=== PATIENT | male | born 1965 | race Caucasian/White ===

== ENCOUNTER 2017-05-03 00:54 | Emergency (ER) | payer SELFPAY ==
--- NOTE | 2017-05-03 01:05 | EDM.PDOC ---
ED HPI GENERAL MEDICAL PROBLEM - General Chief Complaint: Abdominal Pain Stated Complaint: [facility] Time Seen by Provider: 05/03/17 01:04 - History of Present Illness INITIAL COMMENTS - FREE TEXT/NARRATIVE: 51-year-old male presents emergency room with abdominal pain. Patient is a somewhat unusual history the patient is in route from [place] to [place]. He states he has stage IV stomach cancer. He has worsening abdominal discomfort. The patient was riding the bus and can't take sitting anymore so he got off the bus here. His diagnosis was made early this year he becomes vague with questioned about where. Asked about his last medical [place] city. He does not have any paperwork pertaining to that medical encounter. 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 He has a bandage over his right lower abdomen where his ascites was last drained. Patient states she's been walking from [place] someone in [facility] bought him a bus ticket back to [place]. Sitting on the bus is very uncomfortable for him. He is not having any recent nausea vomiting or diarrhea. No black or tarry stools he has vomited blood in the past. Abdomen Pain Score (Numeric/FACES): 8 - Related Data Allergies Allergy/AdvReac Type Severity Reaction Status Date / Time No Known Allergies Allergy Verified 05/03/17 01:03 Home Meds: Home Meds . [No Known Home Meds] 05/03/17 [History] ED ROS GENERAL - Review of Systems Review Of Systems: See Below Constitutional: Reports: No Symptoms HEENT: Reports: No Symptoms Respiratory: Reports: No Symptoms Cardiovascular: Reports: No Symptoms GI/Abdominal: Reports: Abdominal Pain. Denies: Constipation, Diarrhea, Nausea, Vomiting : Reports: No Symptoms Musculoskeletal: Reports: No Symptoms Skin: Reports: No Symptoms Neurological: Reports: No Symptoms Psychiatric: Denies: Homicidal Ideation, Mood Lability, Suicidal Ideation Hematologic/Lymphatic: Reports: No Symptoms Immunologic: Reports: No Symptoms ED EXAM, GI/ABD - Physical Exam Exam: See Below Exam Limited By: No Limitations General Appearance: Alert, No Apparent Distress Head: Atraumatic, Normocephalic Neck: Normal Inspection, Supple, Non-Tender, Full Range of Motion Respiratory/Chest: No Respiratory Distress, Lungs Clear, Normal Breath Sounds Cardiovascular: Regular Rate, Rhythm, No Edema GI/Abdominal Exam: Normal Bowel Sounds, Soft, Non-Tender, Other (Patient had a large bandage over his right lower quadrant he says this is basically keep from scratching the area this is where his last paracentesis was. I removed the bandage really couldn't find a clear definitive site and didn't see any sign of irritation.) Course - Vital Signs Last Recorded V/S: Last Vital Signs Temp 36.3 C 05/03/17 01:03 Pulse 97 05/03/17 01:03 Resp 16 05/03/17 01:03 BP 118/87 05/03/17 01:03 Pulse Ox 100 05/03/17 01:03 - Orders/Labs/Meds Orders: Active Orders 24 hr Category Date Time Status Abdomen Pelvis w Cont [CT] Stat Exams 05/03/17 01:21 Taken Sodium Chloride 0.9% [Normal Saline] 1,000 ml Med 05/03/17 01:30 Active IV ASDIRECTED Medication Orders Sodium Chloride (Normal Saline) 1,000 mls @ 125 mls/hr IV ASDIRECTED ENZO Last Admin: 05/03/17 01:37 Dose: 125 mls/hr Labs: Laboratory Tests 05/03/17 05/03/17 05/03/17 Range/Units 01:00 01:00 01:00 WBC 3.12 L (4.23-9.07) K/mm3 RBC 3.89 L (4.63-6.08) M/mm3 Hgb 9.7 L (13.7-17.5) gm/L Hct 31.5 L (40.1-51.0) % MCV 81.0 (79.0-92.2) fl MCH 24.9 L (25.7-32.2) pg MCHC 30.8 L (32.2-35.5) g/dl RDW Std Deviation 54.2 H (35.1-43.9) fL Plt Count 79 L (163-337) K/mm3 MPV 10.6 (9.4-12.3) fl Neutrophils % (Manual) 57 (40-60) % Band Neutrophils % 0 (0-10) % Lymphocytes % (Manual) 20 (20-40) % Atypical Lymphs % 0 % Monocytes % (Manual) 13 H (2-10) % Eosinophils % (Manual) 7 (0.8-7.0) % Basophils % (Manual) 2 H (0.2-1.2) Myelocytes % 1 Platelet Estimate Decreased Plt Morphology Comment Normal Polychromasia 1+ slight Hypochromasia 1+ slight Poikilocytosis 1+ slight Anisocytosis 2+ moderate Microcytosis 1+ slight Macrocytosis 1+ slight Ovalocytes 1+ slight RBC Morph Comment Abnormal Sodium 143 (136-145) mEq/L Potassium 3.3 L (3.5-5.1) mEq/L Chloride 113 H (98-107) mEq/L Carbon Dioxide 27 (21-32) mEq/L Anion Gap 6.3 (5-15) BUN 10 (7-18) mg/dL Creatinine 0.8 (0.7-1.3) mg/dL Est Cr Clr Drug Dosing 122.07 mL/min Estimated GFR (MDRD) > 60 (>60) mL/min BUN/Creatinine Ratio 12.5 L (14-18) Glucose 84 (74-106) mg/dL Calcium 8.4 L (8.5-10.1) mg/dL Total Bilirubin 1.4 H (0.2-1.0) mg/dL AST 56 H (15-37) U/L ALT 28 (16-63) U/L Alkaline Phosphatase 244 H (46-116) U/L Total Protein 7.0 (6.4-8.2) g/dl Albumin 2.1 L (3.4-5.0) g/dl Globulin 4.9 gm/dL Albumin/Globulin Ratio 0.4 L (1-2) Lipase 271 (73-393) U/L Urine Color (Yellow) Urine Appearance (Clear) Urine pH (5.0-8.0) Ur Specific [place] (1.005-1.030) Urine Protein (Negative) Urine Glucose (UA) (Negative) Urine Ketones (Negative) Urine Occult Blood (Negative) Urine Nitrite (Negative) Urine Bilirubin (Negative) Urine Urobilinogen (0.2-1.0) Ur Leukocyte Esterase (Negative) Urine RBC (0-5) /hpf Urine WBC (0-5) /hpf Ur Epithelial Cells (0-5) /hpf Calcium Oxalate Crystal (NONE) Amorphous Sediment (NOT SEEN) /hpf Urine Bacteria (FEW) /hpf Urine Mucus (FEW) /hpf Urine Opiates Screen (NEGATIVE) Ur Buprenorphine Scrn (NEGATIVE) Ur Oxycodone Screen (NEGATIVE) Urine Methadone Screen (NEGATIVE) Ur Propoxyphene Screen (NEGATIVE) Ur Barbiturates Screen (NEGATIVE) Ur Tricyclics Screen (NEGATIVE) Ur Phencyclidine Scrn (NEGATIVE) Ur Amphetamine Screen (NEGATIVE) U Methamphetamines Scrn (NEGATIVE) U Benzodiazepines Scrn (NEGATIVE) U Cocaine Metab Screen (NEGATIVE) U Marijuana (THC) Screen (NEGATIVE) Ethyl Alcohol 0.00 (0.00) gm% 05/03/17 05/03/17 Range/Units 01:29 01:29 WBC (4.23-9.07) K/mm3 RBC (4.63-6.08) M/mm3 Hgb (13.7-17.5) gm/L Hct (40.1-51.0) % MCV (79.0-92.2) fl MCH (25.7-32.2) pg MCHC (32.2-35.5) g/dl RDW Std Deviation (35.1-43.9) fL Plt Count (163-337) K/mm3 MPV (9.4-12.3) fl Neutrophils % (Manual) (40-60) % Band Neutrophils % (0-10) % Lymphocytes % (Manual) (20-40) % Atypical Lymphs % % Monocytes % (Manual) (2-10) % Eosinophils % (Manual) (0.8-7.0) % Basophils % (Manual) (0.2-1.2) Myelocytes % Platelet Estimate Plt Morphology Comment Polychromasia Hypochromasia Poikilocytosis Anisocytosis Microcytosis Macrocytosis Ovalocytes RBC Morph Comment Sodium (136-145) mEq/L Potassium (3.5-5.1) mEq/L Chloride (98-107) mEq/L Carbon Dioxide (21-32) mEq/L Anion Gap (5-15) BUN (7-18) mg/dL Creatinine (0.7-1.3) mg/dL Est Cr Clr Drug Dosing mL/min Estimated GFR (MDRD) (>60) mL/min BUN/Creatinine Ratio (14-18) Glucose (74-106) mg/dL Calcium (8.5-10.1) mg/dL Total Bilirubin (0.2-1.0) mg/dL AST (15-37) U/L ALT (16-63) U/L Alkaline Phosphatase (46-116) U/L Total Protein (6.4-8.2) g/dl Albumin (3.4-5.0) g/dl Globulin gm/dL Albumin/Globulin Ratio (1-2) Lipase (73-393) U/L Urine Color Yellow (Yellow) Urine Appearance Clear (Clear) Urine pH 7.0 (5.0-8.0) Ur Specific [place] 1.025 (1.005-1.030) Urine Protein Negative (Negative) Urine Glucose (UA) Negative (Negative) Urine Ketones Negative (Negative) Urine Occult Blood Negative (Negative) Urine Nitrite Negative (Negative) Urine Bilirubin 1+ H (Negative) Urine Urobilinogen 1.0 (0.2-1.0) Ur Leukocyte Esterase Negative (Negative) Urine RBC 0-5 (0-5) /hpf Urine WBC 0-5 (0-5) /hpf Ur Epithelial Cells 0-5 (0-5) /hpf Calcium Oxalate Crystal Few H (NONE) Amorphous Sediment Moderate H (NOT SEEN) /hpf Urine Bacteria Few (FEW) /hpf Urine Mucus Many H (FEW) /hpf Urine Opiates Screen Negative (NEGATIVE) Ur Buprenorphine Scrn Negative (NEGATIVE) Ur Oxycodone Screen Negative (NEGATIVE) Urine Methadone Screen Negative (NEGATIVE) Ur Propoxyphene Screen Negative (NEGATIVE) Ur Barbiturates Screen Negative (NEGATIVE) Ur Tricyclics Screen Negative (NEGATIVE) Ur Phencyclidine Scrn Negative (NEGATIVE) Ur Amphetamine Screen Negative (NEGATIVE) U Methamphetamines Scrn Negative (NEGATIVE) U Benzodiazepines Scrn Negative (NEGATIVE) U Cocaine Metab Screen Negative (NEGATIVE) U Marijuana (THC) Screen Negative (NEGATIVE) Ethyl Alcohol (0.00) gm% Meds: Medications Generic Name Dose Route Start Last Admin Trade Name Freq PRN Reason Stop Dose Admin Sodium Chloride 1,000 mls @ 125 mls/hr 05/03/17 01:30 05/03/17 01:37 Normal Saline IV 125 mls/hr ASDIRECTED ENZO Administration Discontinued Medications Generic Name Dose Route Start Last Admin Trade Name Freq PRN Reason Stop Dose Admin Iopamidol 125 ml 05/03/17 02:46 05/03/17 03:11 Isovue-300 (61%) IVPUSH 05/03/17 02:47 125 ml ONETIME ONE Administration Morphine Sulfate 2 mg 05/03/17 01:23 05/03/17 01:38 Morphine IVPUSH 05/03/17 01:24 2 mg ONETIME ONE Administration Ondansetron HCl 4 mg 05/03/17 01:23 05/03/17 01:38 Zofran IVPUSH 05/03/17 01:24 4 mg ONETIME ONE Administration - Re-Assessments/Exams Free Text/Narrative Re-Assessment/Exam: 05/03/17 03:36 Laboratory evaluation shows an anemia not requiring transfusion. Mild electrolyte abnormalities total bilirubin is 1.4. Toxicology negative. CAT scan was obtained which shows a cirrhotic liver he has a 4.6 cm lesion in the right lobe the patient thinks she's had this in the past nonetheless this should be followed up when he gets home since splenomegaly and some mild wall thickening of the colon could be due to colitis. Departure - Departure Time of Disposition: 03:39 Disposition: Home, Self-Care 01 Clinical Impression: Chronic abdominal pain, History of stomach cancer - Discharge Information Forms: ED Department Discharge Additional Instructions: Return to this emergency room or another emergency room with any questions problems worsening symptoms. - My Orders Last 24 Hours: My Active Orders 05/03/17 01:21 Abdomen Pelvis w Cont [CT] Stat 05/03/17 01:30 Sodium Chloride 0.9% [Normal Saline] 1,000 ml IV ASDIRECTED - Assessment/Plan Last 24 Hours: My Active Orders 05/03/17 01:21 Abdomen Pelvis w Cont [CT] Stat 05/03/17 01:30 Sodium Chloride 0.9% [Normal Saline] 1,000 ml IV ASDIRECTED
[2017-05-03] MEDS ORDERED: Morphine 2 MG/ML Syringe IVPUSH ONE (01:23)
[2017-05-03] MEDS ORDERED: Ondansetron 4 MG/2 ML SDV IVPUSH ONE (01:23)
[2017-05-03] MEDS ORDERED: Sodium Chloride 0.9% 1,000 ML IV SCH (01:30)
[2017-05-03] MEDS ORDERED: Iopamidol 612 MG/ML 150 ML Bottle IVPUSH ONE (02:46)
--- NOTE | 2017-05-03 08:04 | CT ---
CT abdomen and pelvis Technique: Multiple axial sections were obtained from above the dome of the diaphragm inferiorly through the pubic symphysis. Intravenous and oral contrast has been given. Delayed images were also obtained through the abdomen and pelvis. Comparison: No previous study is available. Findings: Liver is somewhat nodular in its surface characteristics. Liver lesion is identified within the inferior right lobe measuring about 4.6 cm. This lesion is slightly more dense on the immediate contrast images than the liver. TIPS device is present. Spleen is enlarged with a length of 14.8 cm. Small amount of ascites is seen. Adrenal glands show no nodule. Pancreas is within normal limits. Surgical clips are seen within the retroperitoneum. Low density abnormality noted within the left kidney most likely representing a cyst measuring 2.1 cm. Kidneys otherwise are unremarkable. Gallbladder not seen presumably from previous cholecystectomy. Aorta shows no aneurysmal dilatation. No retroperitoneal adenopathy or mesenteric abnormalities are seen. No pelvic mass or adenopathy is seen. Colonic wall shows mild wall thickening. Bone window settings were reviewed which appear within normal limits for the patient's age. Delayed images show contrast excretion from both kidneys into the bladder. No ureteral dilatation is seen. Impression: 1. Nodular appearance of the liver with splenomegaly. Liver findings likely represent cirrhosis. 4.6 cm lesion within the right lobe of the liver. Difficult to exclude neoplastic nodule. 2. Small amount of ascites. 3. TIPS device is noted. 4. Mild diffuse colonic wall thickening is seen either due to mild colitis or can be seen with hypoproteinemia. Diagnostic code #9 I agree with preliminary report issued by [employer] ([facility] preliminary report dictated on 05/03/17, 4:23 AM Central Time)
== END 2017-05-03 09:07 | disposition home or self-care (01) ==
LOC: JD.ED 00:54
DX: R10.9 Unspecified abdominal pain (principal); G89.29 Other chronic pain; Z85.028 Personal history of other malignant neoplasm of stomach
CPT/HCPCS: 36415; 74177; 80053; 80306; 81001; 83690; 85025; 96361; 96374; 96375; 99285; G0480; J2270; J2405; J7040; Q9967; 99284